=== PATIENT | female | born 1980 | race Caucasian/White ===

== ENCOUNTER 2017-03-19 11:20 | Emergency (ER) | payer MEDICAID ==
[~2017-03-19] VITALS: Ht 152.4 cm; Wt 96.4 kg
[2017-03-19 11:22] VITALS: BP 149/86
== END 2017-03-19 12:04 | disposition home or self-care (01) ==
LOC: ED 12:03
DX: H60.91 Unspecified otitis externa, right ear (principal); H61.22 Impacted cerumen, left ear
CPT/HCPCS: 99283

== ENCOUNTER → 2019-12-25 | Outpatient (CLI) | payer MEDICAID | END | disposition home or self-care (01) | LOC: RAD 12:12 | PROVIDERS: ATTEND Nurse Practitioner Family | DX: R60.0 Localized edema (principal); M79.662 Pain in left lower leg ==